=== PATIENT | female | born 1955 | race Hispanic/Latino ===

== ENCOUNTER 2024-11-30 13:23 | Inpatient (IN) | payer BC, MEDICARE ==
[2024-11-30 14:14] LABS: Actual Bicarbonate (HCO3v) 24.2 mEq/L (22-28); Analyzer IN Cardio ER; Base Excess 0.8 mEq/L (-2.0 to +3.0); Calcium, Ionized (venous) 1.05 mmol/L (1.16-1.32); Chloride (VBG) 98 mmol/L (98-106); Hematocrit-VBG 34 % (36.0-47.0); Hemoglobin (Hb) 11.7 g/dL (11.7-16.1); Potassium (VBG) 3.84 mmol/L (3.70-5.30); Sodium 134 mmol/L (133-146)
[2024-11-30 14:17] LABS: #Basophils 0.06 10x3/uL (0.0-0.2); #Eosinophils Less than 0.03 10x3/uL (0.0-0.7); #Monocytes 0.43 10x3/uL (0.11-0.59); #Neutrophils 13.03 10x3/uL (1.40-6.50); %Basophils 0.4 % (0.0-1.0); %Eosinophils 0.1 % (0.0-10.0); %Lymphocytes 4.8 % (21.0-51.0); %Monocytes 3.0 % (0.0-10.0); %Neutrophils 91.2 % (42.0-75.0); Hematocrit 33.3 % (36.0-47.0); Hemoglobin 10.7 g/dL (12.0-16.0); Mean Corpuscular Hemoglobin 29.2 pg (27.0-31.0); Mean Corpuscular Volume 90.7 fL (78.0-98.0); Platelet Count 252 10x3/uL (130-400); Red Blood Cell (RBC) Count 3.67 mill/uL (4.20-5.40); White Blood Cell (WBC) Count 14.29 10x3/uL (4.8-10.8)
[2024-11-30] MEDS ORDERED: Iopamidol 370 76% 100 ML VIAL ONE (14:22)
[2024-11-30 14:31] LABS: INR-International Normal Ratio 1.2; Prothrombin Time 15.6 sec (12.0-14.7)
[2024-11-30 14:32] LABS: PTT 40.0 sec (22.9-36.1)
[2024-11-30 14:33] LABS: Lipase 31 U/L (8-78); Magnesium 1.7 mg/dL (1.6-2.6)
[2024-11-30 14:35] LABS: ALT (SGPT) 17 U/L (Less than 34); AST (SGOT) 27 U/L (11-34); Albumin 3.4 g/dL (3.1-4.5); Alkaline Phosphatase 71 U/L (40-110); Anion Gap 16 mmol/L (10-20); BUN (Urea Nitrogen) 24 mg/dL (9.8-20.1); Bilirubin, Total 0.7 mg/dL (0.3-1.2); Calc. Creatinine Clearance 0 mL/min (70-130); Calcium 8.8 mg/dL (7.8-10.44); Carbon Dioxide 22 mmol/L (23-31); Chloride 101 mmol/L (98-107); Globulin 4.3 g/dL (2.4-3.5); Glucose 134 mg/dL (80-115); Potassium 3.8 mmol/L (3.5-5.1); Sodium 135 mmol/L (136-145)
[2024-11-30 14:43] LABS: CRP, High Sensitivity at Bryan 22.01 mg/dL (< or = 0.5)
[2024-11-30] MEDS ORDERED: Acetaminophen 500 MG TAB ONE (14:46)
[2024-11-30] MEDS ORDERED: Ketorolac Tromethamine 30 MG (1 mL) VIAL ONE (14:46)
[2024-11-30] MEDS ORDERED: Ondansetron PF 4 MG/2 ML Vial ONE (14:46)
[2024-11-30 15:21] LABS: Bacteria/HPF 4+ HPF (None Seen); CAUTI Indications for Culture Acute Hematuria; Glucose, Urine (Dipstick) Normal (Negative); Leukocyte 500 Leu/uL (Negative); Protein, Urine (Dipstick) 50 mg/dL (Neg-Trace); Specific Gravity, Urine 1.022 (1.002-1.036); WBC/HPF Greater than 50 HPF (0-3)
[2024-11-30 15:26] LABS: Urine Culture Reflex Yes Yes
[2024-11-30] MEDS ORDERED: cefTRIAXone (ROCEPHIN) 2 GM VIAL ONE (15:51)
[2024-11-30] MEDS ORDERED: Aspirin Chewable 81 MG TAB ONE (16:17)
[2024-11-30] MEDS ORDERED: Senokot S 8.6-50 MG TAB PO PRN (17:20)
[2024-11-30] MEDS ORDERED: Ondansetron PF 4 MG/2 ML Vial IVP PRN (17:20)
[2024-11-30] MEDS ORDERED: Dextrose 50% Abboject 50 ML SYRINGE SLOW IVP PRN (17:20)
[2024-11-30] MEDS ORDERED: Glucagon 1 MG/ML KIT IM PRN (17:20)
[2024-11-30] MEDS ORDERED: Electrolyte Replacement Protocol 1 EACH FS SCH (17:30)
[2024-11-30] MEDS: Acetaminophen 325 MG TAB PO PRN (22:12)
[2024-11-30] MEDS: Magnesium 2 GM/50 ML(in water) 2 GM in Premix 1 BAG IVPB SCH (22:13)
[2024-11-30] MEDS: NS 0.9% w/ 20 MEQ KCL 1,000 ML/1,000 ML BAG IV SCH (22:13)
[2024-12-01 05:11] LABS: Anion Gap 11 mmol/L (10-20); BUN (Urea Nitrogen) 21 mg/dL (9.8-20.1); Calc. Creatinine Clearance 0 mL/min (70-130); Calcium 7.6 mg/dL (7.8-10.44); Carbon Dioxide 22 mmol/L (23-31); Chloride 105 mmol/L (98-107); Glucose 147 mg/dL (80-115); Potassium 3.9 mmol/L (3.5-5.1); Sodium 134 mmol/L (136-145)
[2024-12-01 05:24] LABS: Hematocrit 26.9 % (36.0-47.0); Hemoglobin 8.5 g/dL (12.0-16.0); Mean Corpuscular Hemoglobin 29.3 pg (27.0-31.0); Mean Corpuscular Volume 92.8 fL (78.0-98.0); Platelet Count 193 10x3/uL (130-400); Red Blood Cell (RBC) Count 2.90 mill/uL (4.20-5.40); White Blood Cell (WBC) Count 12.99 10x3/uL (4.8-10.8)
[2024-12-01 06:00] LABS: Platelet Adequacy Comment Platelets Normal; RBC Morphology Within Normal Limits; Smudge Cells 1.0 %
[2024-12-01] MEDS: Aspirin 81 mg Enteric Coated Tablet PO SCH (09:42)
[2024-12-01] MEDS: Albumin 25% 25 GM (100 mL) BOT IVPB SCH (16:49)
[2024-12-01] MEDS: cefTRIAXone\\ROCEPHIN 1 GM in Sodium Chloride 0.9% 100 ML IVPB SCH (17:38)
[2024-12-01] MEDS: FLU (Fluad Triv) 25-26 (65UP)PF 45 MCG/0.5 ML Syringe IM ONE (19:43)
[2024-12-02 04:25] LABS: Hematocrit 24.9 % (36.0-47.0); Hemoglobin 7.9 g/dL (12.0-16.0); Mean Corpuscular Hemoglobin 29.2 pg (27.0-31.0); Mean Corpuscular Volume 91.9 fL (78.0-98.0); Platelet Count 181 10x3/uL (130-400); Red Blood Cell (RBC) Count 2.71 mill/uL (4.20-5.40); White Blood Cell (WBC) Count 11.35 10x3/uL (4.8-10.8)
[2024-12-02 04:28] LABS: Anion Gap 11 mmol/L (10-20); BUN (Urea Nitrogen) 13 mg/dL (9.8-20.1); Calc. Creatinine Clearance 85 mL/min (70-130); Calcium 7.7 mg/dL (7.8-10.44); Carbon Dioxide 21 mmol/L (23-31); Chloride 109 mmol/L (98-107); Glucose 115 mg/dL (80-115); Potassium 4.0 mmol/L (3.5-5.1); Sodium 137 mmol/L (136-145)
[2024-12-02 04:41] LABS: CRP, High Sensitivity at Bryan 23.70 mg/dL (< or = 0.5)
[2024-12-02 05:21] LABS: Burr Cells SLIGHT = 2-5 cells HPF (0-1); Platelet Adequacy Comment Platelets Normal; Smudge Cells 5.0 %
[2024-12-02] MEDS ORDERED: Mag-Al Plus 1200/1200/120 MG (30 mL) UDCUP PO PRN (14:09)
[2024-12-02] MEDS: Famotidine/PF 20 mg/2ml Vial SLOW IVP SCH (15:21)
[2024-12-02] MEDS: Benzonatate 100 MG CAP PO PRN (15:22)
[2024-12-02] MEDS: cefTRIAXone\\ROCEPHIN 2 GM in Sodium Chloride 0.9% 100 ML IVPB SCH (16:41)
[2024-12-02] MEDS: Furosemide 40 MG (4 mL) VIAL SLOW IVP SCH (17:46)
[2024-12-03 03:23] LABS: #Basophils Less than 0.03 10x3/uL (0.0-0.2); #Eosinophils 0.17 10x3/uL (0.0-0.7); #Monocytes 0.67 10x3/uL (0.11-0.59); #Neutrophils 6.59 10x3/uL (1.40-6.50); %Basophils 0.2 % (0.0-1.0); %Eosinophils 1.8 % (0.0-10.0); %Lymphocytes 19.1 % (21.0-51.0); %Monocytes 7.2 % (0.0-10.0); %Neutrophils 70.9 % (42.0-75.0); Hematocrit 24.7 % (36.0-47.0); Hemoglobin 7.8 g/dL (12.0-16.0); Mean Corpuscular Hemoglobin 29.0 pg (27.0-31.0); Mean Corpuscular Volume 91.8 fL (78.0-98.0); Platelet Count 230 10x3/uL (130-400); Red Blood Cell (RBC) Count 2.69 mill/uL (4.20-5.40); White Blood Cell (WBC) Count 9.30 10x3/uL (4.8-10.8)
[2024-12-03 03:29] LABS: Hb (HGBA1c) 2289.837 umol/L
[2024-12-03 03:52] LABS: ALT (SGPT) 21 U/L (Less than 34); AST (SGOT) 26 U/L (11-34); Albumin 3.2 g/dL (3.1-4.5); Alkaline Phosphatase 209 U/L (40-110); Anion Gap 15 mmol/L (10-20); BUN (Urea Nitrogen) 13 mg/dL (9.8-20.1); Bilirubin, Total 1.3 mg/dL (0.3-1.2); Calc. Creatinine Clearance 84 mL/min (70-130); Calcium 7.5 mg/dL (7.8-10.44); Carbon Dioxide 18 mmol/L (23-31); Cardiac Risk 4.7 (Less than 4.5); Chloride 109 mmol/L (98-107); Cholesterol 93 mg/dl (< 200 Desired); Globulin 2.8 g/dL (2.4-3.5); Glucose 127 mg/dL (80-115); HDL Cholesterol 20 mg/dL (>60 Neg Risk); LDL Cholesterol, Calculated 49 mg/dL; Magnesium 2.0 mg/dL (1.6-2.6); Potassium 3.5 mmol/L (3.5-5.1); Sodium 138 mmol/L (136-145); Triglycerides 118 mg/dL (Less than 150)
[2024-12-03 05:24] LABS: CRP, High Sensitivity at Bryan 21.21 mg/dL (< or = 0.5)
[2024-12-03] MEDS: Spironolactone 25 MG TAB PO SCH (08:42)
[2024-12-03] MEDS: Famotidine/PF 20 mg/2ml Vial SLOW IVP SCH (08:43)
[2024-12-03] MEDS: Magnesium 2 GM/50 ML(in water) 2 GM in Premix 1 BAG IVPB SCH (08:44)
[2024-12-03] MEDS: Furosemide 40 MG (4 mL) VIAL SLOW IVP SCH (12:39)
[2024-12-04 04:04] LABS: #Basophils 0.04 10x3/uL (0.0-0.2); #Eosinophils 0.31 10x3/uL (0.0-0.7); #Monocytes 0.77 10x3/uL (0.11-0.59); #Neutrophils 5.53 10x3/uL (1.40-6.50); %Basophils 0.5 % (0.0-1.0); %Eosinophils 3.7 % (0.0-10.0); %Lymphocytes 18.9 % (21.0-51.0); %Monocytes 9.3 % (0.0-10.0); %Neutrophils 66.4 % (42.0-75.0); Hematocrit 25.5 % (36.0-47.0); Hemoglobin 8.3 g/dL (12.0-16.0); Mean Corpuscular Hemoglobin 28.9 pg (27.0-31.0); Mean Corpuscular Volume 88.9 fL (78.0-98.0); Platelet Count 272 10x3/uL (130-400); Red Blood Cell (RBC) Count 2.87 mill/uL (4.20-5.40); White Blood Cell (WBC) Count 8.32 10x3/uL (4.8-10.8)
[2024-12-04 04:34] LABS: Anion Gap 18 mmol/L (10-20); BUN (Urea Nitrogen) 16 mg/dL (9.8-20.1); Calc. Creatinine Clearance 104 mL/min (70-130); Calcium 8.5 mg/dL (7.8-10.44); Carbon Dioxide 21 mmol/L (23-31); Chloride 107 mmol/L (98-107); Glucose 106 mg/dL (80-115); Potassium 3.6 mmol/L (3.5-5.1); Sodium 142 mmol/L (136-145)
[2024-12-04 05:19] VITALS: BMI 30.8
[2024-12-05 04:40] LABS: #Basophils 0.04 10x3/uL (0.0-0.2); #Eosinophils 0.25 10x3/uL (0.0-0.7); #Monocytes 0.90 10x3/uL (0.11-0.59); #Neutrophils 5.34 10x3/uL (1.40-6.50); %Basophils 0.5 % (0.0-1.0); %Eosinophils 2.8 % (0.0-10.0); %Lymphocytes 22.9 % (21.0-51.0); %Monocytes 10.3 % (0.0-10.0); %Neutrophils 60.8 % (42.0-75.0); Hematocrit 27.6 % (36.0-47.0); Hemoglobin 9.0 g/dL (12.0-16.0); Mean Corpuscular Hemoglobin 28.8 pg (27.0-31.0); Mean Corpuscular Volume 88.2 fL (78.0-98.0); Platelet Count 307 10x3/uL (130-400); Red Blood Cell (RBC) Count 3.13 mill/uL (4.20-5.40); White Blood Cell (WBC) Count 8.78 10x3/uL (4.8-10.8)
[2024-12-05 04:58] LABS: Anion Gap 14 mmol/L (10-20); BUN (Urea Nitrogen) 14 mg/dL (9.8-20.1); Calc. Creatinine Clearance 91 mL/min (70-130); Calcium 8.7 mg/dL (7.8-10.44); Carbon Dioxide 22 mmol/L (23-31); Chloride 108 mmol/L (98-107); Glucose 109 mg/dL (80-115); Potassium 3.8 mmol/L (3.5-5.1); Sodium 140 mmol/L (136-145)
[2024-12-05] MEDS: Lisinopril 10 MG TAB PO SCH (09:05)
[2024-12-05 16:32] VITALS: BP 155/60; TEMP 97.9
[2024-12-05] MEDS ORDERED: cefTRIAXone\\ROCEPHIN 2 GM in Sodium Chloride 0.9% 100 ML IVPB SCH (17:00)
== END 2024-12-05 18:30 | disposition home or self-care (01) | DRG 871 ==
LOC: ERS 13:23 → 2SE 17:09
PROVIDERS: ADMIT Internal Medicine; ATTEND Internal Medicine
PROC: 0T9B70Z Drainage of Bladder with Drainage Device, Via Natural or Artificial Opening (ICD-10-PCS; principal; 2024-11-30)
PROC: 3E03329 Introduction of Other Anti-infective into Peripheral Vein, Percutaneous Approach (ICD-10-PCS; 2024-11-30)
PROC: 3E02340 Introduction of Influenza Vaccine into Muscle, Percutaneous Approach (ICD-10-PCS; 2024-11-30)
PROC: 30233J1 Transfusion of Nonautologous Serum Albumin into Peripheral Vein, Percutaneous Approach (ICD-10-PCS; 2024-12-01)
DX: A41.9 Sepsis, unspecified organism (principal); N15.1 Renal and perinephric abscess; N10 Acute pyelonephritis; E11.40 Type 2 diabetes mellitus with diabetic neuropathy, unspecified; M54.32 Sciatica, left side; R63.4 Abnormal weight loss; E86.0 Dehydration; D64.9 Anemia, unspecified; B96.20 Unspecified Escherichia coli [E. coli] as the cause of diseases classified elsewhere; Z98.890 Other specified postprocedural states; Z68.30 Body mass index [BMI] 30.0-30.9, adult; Z79.899 Other long term (current) drug therapy; Z23 Encounter for immunization
CPT/HCPCS: 36415; 36416; 71045; 71275; 74177; 80048; 80053; 80061; 81001; 82805; 83036; 83605; 83690; 83735; 83880; 84145; 84484; 85025; 85610; 85730; 86141; 87040; 87077; 87086; 87149; 87186; 87428; 93005; 93010; 93306; 96361; 96365; 96375; J0696; J1815; J1885; J1940; J3475; J3480; J7030; P9047; Q9967